=== PATIENT | female | born 1965 | race African-American/Black ===

== ENCOUNTER 2019-01-23 11:34 | Emergency (ER) | payer OTHER, SELFPAY | END 2019-01-23 12:47 | disposition home or self-care (01) | LOC: ERS 11:34 | DX: T63.441A Toxic effect of venom of bees, accidental (unintentional), initial encounter (principal); I10 Essential (primary) hypertension | CPT/HCPCS: 99283 ==

== ENCOUNTER 2021-06-15 14:58 | Outpatient (CLI) | payer OTHER | END 2021-06-15 14:59 | disposition home or self-care (01) | LOC: BICMAMMO 14:58 | PROVIDERS: ATTEND Nurse Practitioner Family | DX: Z12.31 Encounter for screening mammogram for malignant neoplasm of breast (principal) | CPT/HCPCS: 77063; 77067 ==